=== PATIENT | female | born 1950 | race Caucasian/White ===

== ENCOUNTER 2021-03-15 09:23 | Outpatient (CLI) | payer MEDICARE | END 2021-03-15 09:24 | disposition home or self-care (01) | LOC: PET 09:23 | PROVIDERS: ATTEND Thoracic Surgery (Cardiothoracic Vascular Surgery) | DX: C34.31 Malignant neoplasm of lower lobe, right bronchus or lung (principal); J43.9 Emphysema, unspecified | CPT/HCPCS: 78815; A9552 ==

== ENCOUNTER 2022-01-12 12:43 | Outpatient (CLI) | payer MEDICARE | END 2022-01-12 12:44 | disposition home or self-care (01) | LOC: CT 12:43 | PROVIDERS: ATTEND Thoracic Surgery (Cardiothoracic Vascular Surgery) | DX: C34.31 Malignant neoplasm of lower lobe, right bronchus or lung (principal) | CPT/HCPCS: 71250 ==

== ENCOUNTER 2022-08-03 12:03 | Outpatient (CLI) | payer MEDICARE | END 2022-08-03 12:04 | disposition home or self-care (01) | LOC: CT 12:03 | PROVIDERS: ATTEND Thoracic Surgery (Cardiothoracic Vascular Surgery) | DX: C34.31 Malignant neoplasm of lower lobe, right bronchus or lung (principal); R91.1 Solitary pulmonary nodule; N28.9 Disorder of kidney and ureter, unspecified; K76.9 Liver disease, unspecified | CPT/HCPCS: 71250 ==